=== PATIENT | female | born 1965 | race Asian ===

== ENCOUNTER 2018-02-05 08:36 | Day surgery (SDC) | payer OTHER ==
[~2018-02-05] VITALS: Ht 162.6 cm; Wt 72.6 kg
[2018-02-05 09:02] VITALS: BP 145/91
[2018-02-05 14:02] VITALS: BP 137/81
== END 2018-02-05 13:45 | disposition home or self-care (01) ==
LOC: DS 08:36 → OR 09:00 → DS 09:00
PROVIDERS: Neuromusculoskeletal Medicine, Sports Medicine
PROC: 3E0U33Z Introduction of Anti-inflammatory into Joints, Percutaneous Approach (ICD-10-PCS; 2018-02-05)
PROC: 3E0U3BZ Introduction of Anesthetic Agent into Joints, Percutaneous Approach (ICD-10-PCS; 2018-02-05)
PROC: 0RSKXZZ Reposition Left Shoulder Joint, External Approach (ICD-10-PCS; principal; 2018-02-05 09:00)
DX: M75.02 Adhesive capsulitis of left shoulder (principal)
CPT/HCPCS: J1030; J1170; J2001; J2250; J2405; J2704; J3010; J3490; J7120